=== PATIENT | male | born 1990 | race Caucasian/White ===

== ENCOUNTER 2020-04-16 16:03 | Emergency (ER) | payer SELFPAY ==
[~2020-04-16] VITALS: Ht 180.3 cm; Wt 74.8 kg
[2020-04-16 16:10] VITALS: BP 142/92
[2020-04-16] MEDS ORDERED: IBUPROFEN 600 MG TAB PO ONE (16:25)
[2020-04-16 16:42] VITALS: BP 142/89
== END 2020-04-16 16:46 ==
LOC: MED 16:03
DX: L08.9 Local infection of the skin and subcutaneous tissue, unspecified (principal); R03.0 Elevated blood-pressure reading, without diagnosis of hypertension; F17.210 Nicotine dependence, cigarettes, uncomplicated; Z02.89 Encounter for other administrative examinations
CPT/HCPCS: 99283